=== PATIENT | female | born 1990 | race Caucasian/White ===

== ENCOUNTER 2019-11-04 19:13 | Emergency (ER) | payer MEDICAID ==
[~2019-11-04] VITALS: Ht 160 cm; Wt 61.2 kg
[2019-11-04 19:13] VITALS: BP_SYST 125
[2019-11-04] MEDS ORDERED: IPRATROPIUM/ALBUTEROL SULFATE 3 ML AMPUL.NEB (DUONEB) INH ONE (19:30)
[2019-11-04] MEDS ORDERED: MAGNESIUM SULFATE 50 ML IV ONE (19:30)
[2019-11-04] MEDS ORDERED: methylPREDNISolone SOD SUCC/PF 62.5 MG/ML VIAL IVP ONE (19:30)
[2019-11-04] MEDS ORDERED: NACL 0.9% 1,000 ML IV ONE (19:30)
== END 2019-11-04 20:02 | disposition left against medical advice (07) ==
LOC: SED 19:13
DX: R06.02 Shortness of breath (principal); Z53.21 Procedure and treatment not carried out due to patient leaving prior to being seen by health care provider
CPT/HCPCS: 94640

== ENCOUNTER 2019-11-04 22:02 | Emergency (ER) | payer MEDICAID ==
[~2019-11-04] VITALS: Ht 160 cm; Wt 61.2 kg
[2019-11-04 22:13] VITALS: BP_SYST 127
[2019-11-04] MEDS ORDERED: IPRATROPIUM/ALBUTEROL SULFATE 3 ML AMPUL.NEB (DUONEB) INH ONE (23:45)
[2019-11-05] MEDS ORDERED: methylPREDNISolone SOD SUCC/PF 62.5 MG/ML VIAL IVP ONE (00:15)
[2019-11-05] MEDS ORDERED: methylPREDNISolone SOD SUCC/PF 62.5 MG/ML VIAL IM ONE (00:15)
[2019-11-05 00:30] VITALS: BP_SYST 127
[2019-11-05] MEDS ORDERED: LORazepam 2 MG/ML VIAL IM ONE (00:30)
== END 2019-11-05 00:30 | disposition home or self-care (01) ==
LOC: SED 22:02
DX: J45.901 Unspecified asthma with (acute) exacerbation (principal); F41.9 Anxiety disorder, unspecified
CPT/HCPCS: 93005; 94640; 96372; 99284; J2060; J2930

== ENCOUNTER 2022-11-08 16:26 | Emergency (ER) | payer MEDICAID ==
[~2022-11-08] VITALS: Ht 162.6 cm; Wt 65.8 kg
[2022-11-08 17:48] VITALS: BP_SYST 120
--- NOTE | 2022-11-08 18:50 | NUR ---
Patient placed in ER bed 5 for evaluation per documentation.
--- NOTE | 2022-11-08 18:52 | NUR ---
BIB SELF FROM HOME WITH C/O HAVING A TAMPON STUCK INSIDE HER VAGINA FOR THE PAST THREE DAYS. NO MEDICAL HX. NO KNOWN ALLERGIES. PT AAXO4, VSS, NAD, BREATHING IS EVEN AND UNLABORED. PT AMBULATORY WITH STEADY GAIT. PT ON PRODUCT GRADER SHOWING NSR. HOB ELEVATED, SIDE RIALS UP, BED IN LOWEST POSITION,CALL LIGHT WITHIN REACH. SAFETY PRECUATIONS AND COMFORT MEASURES IN PLACE. PENDING MD TURPIN AND ORDERS.
--- NOTE | 2022-11-08 18:52 | NUR ---
Note undone in EDM - 11/08/22 at 1855 by [email or web address] BIB SEFL FROM HOME WITH C/O HAVING A TAMPON STUCK INSIDE HER VAGINA FOR THE PAST THREE DAYS. NO MEDICAL HX. NO KNOWN ALLERGIES. PT AAXO4, VSS, NAD, BREATHING IS EVEN AND UNLABORED. PT AMBULATORY WITH STEADY GAIT. PT ON CHANGE OF ADDRESS CLERK SHOWING NSR. HOB ELEVATED, SIDE RIALS UP, BED IN LOWEST POSITION,CALL LIGHT WITHIN REACH. SAFETY PRECUATIONS AND COMFORT MEASURES IN PLACE. PENDING MD TURPIN AND ORDERS.
--- NOTE | 2022-11-08 18:53 | NUR ---
DR. SHARMA AT BEDSIDE EXAMINING THE PT.
--- NOTE | 2022-11-08 20:40 | NUR ---
Chaperoned Dr. Guardado for pelvic exam and specimen collection. Dropped off the lab.
[2022-11-08] MEDS ORDERED: cefTRIAXone 250 MG VIAL IM ONE (21:00)
[2022-11-08] MEDS ORDERED: AZITHROMYCIN 250 MG TABLET PO ONE (21:00)
[2022-11-08 21:14] LABS: BILIRUBIN,URINE NEGATIVE (NEGATIVE); BLOOD, URINE NEGATIVE (NEGATIVE); CLARITY/URINE CLEAR (CLEAR); GLUCOSE,URINE NEGATIVE (NEGATIVE); KETONES,URINE NEGATIVE (NEGATIVE); LEUKOCYTE ESTERASE ,URINE NEGATIVE (NEGATIVE); NITRITE, URINE NEGATIVE (NEGATIVE); PROTEIN URINE NEGATIVE (NEGATIVE); UROBILINOGEN,URINE 0.2 (0.2-1.0)
[2022-11-08 21:22] LABS: COLOR,URINE STRAW (YELLOW)
[2022-11-08] MEDS ORDERED: LIDOCAINE 1%, 20 ML MDV 20 ML ONE (21:50)
[2022-11-08] MEDS ORDERED: HYDC2.5% TP (21:53)
--- NOTE | 2022-11-08 22:10 | NUR ---
PT HAD PELVIC EXAM. pT dc GIVEN ABX. CALL PT BY MD SHARMA [phone]
[2022-11-08 22:13] VITALS: BP_SYST 130
[2022-11-08] MEDS ORDERED: METR45GE5 TP (23:09)
== END 2022-11-08 22:13 | disposition home or self-care (01) ==
LOC: SED 16:26
DX: N76.0 Acute vaginitis (principal); R30.0 Dysuria; J45.909 Unspecified asthma, uncomplicated; Z79.899 Other long term (current) drug therapy
CPT/HCPCS: 99284; 87210; 36415; 96372; 87491; 81003; J0696; J2001; Q0144